=== PATIENT | female | born 1980 | race African-American/Black ===

== ENCOUNTER 2019-02-12 18:46 | Emergency (ER) | payer BC ==
[~2019-02-12 18:46] MED LIST: GLUCOPHAGE500 MG PO; HYZAAR 100-25 T1 TAB PO; IBUPROFEN600 MG PO; KLOR-CON 1010 MEQ PO; PERCOCET 5-3251 TAB PO
[2019-02-12 18:49] VITALS: BP 214/140; BMI 32.8
[2019-02-12] MEDS ORDERED: VALTREX1000 MG PO (18:51)
[2019-02-12] MEDS ORDERED: KEFLEX250 MG PO (18:52)
[2019-02-12 20:06] LABS: BASOPHILS 0.1 % (0-2); EOSINOPHILS 1.7 % (0-7); HEMATOCRIT 42.9 % (36.0-48.0); HEMOGLOBIN 15.3 g/dL (12-16); IMMATURE GRANULOCYTES 0.1 % (0-5); LYMPHOCYTES 24.5 % (15-50); MCH 30.2 pg (26.0-34.0); MCHC 35.7 g/dL (31.0-37.0); MCV 84.8 fL (80.0-100.0); MEAN PLATELET VOLUME 9.4 fL (7.4-10.4); MONOCYTES 3.2 % (2-11); NEUTROPHILS 70.4 % (40-80); PLATELET COUNT 295 10x3/uL (130-400); RBC 5.06 10x6/uL (4.00-5.40); RDW 12.7 % (11.5-14.5); WBC 8.7 10x3/uL (4.8-10.8)
[2019-02-12 20:23] LABS: ALBUMIN 4.1 g/dL (3.4-5.0); ALKALINE PHOSPHATASE 73 U/L (46-116); ALT (SGPT) 35 U/L (10-68); BILIRUBIN - TOTAL 0.26 mg/dL (0.2-1.3); CALC OSMOLALITY 279 mosm/kg (275-300); CALCIUM 9.1 mg/dL (8.5-10.1); CARBON DIOXIDE 29.5 mmol/L (21.0-32.0); CHLORIDE - SERUM 100 mmol/L (98-107); CREATININE - SERUM 0.6 mg/dL (0.6-1.3); POTASSIUM - SERUM 3.4 mmol/L (3.5-5.1); SODIUM 136 mmol/L (136-145); UREA NITROGEN 10 mg/dL (7-18); eGFR NON AFRICAN AMERICAN > 90 mL/min (90-120)
[2019-02-12 20:25] LABS: GLUCOSE 256 mg/dL (74-106)
[2019-02-12] MEDS ORDERED: HYDROCHLOROTH12.5 M1 PO (20:51)
[2019-02-12] MEDS ORDERED: NORVASC5 MG PO (20:51)
[2019-02-12] MEDS ORDERED: CATAPRES0.1 MG PO (20:57)
[2019-02-12] MEDS ORDERED: GLUCOPHAGE500 MG PO (20:59)
== END 2019-02-12 21:00 | disposition home or self-care (01) ==
LOC: D.ER 18:46
PROVIDERS: Family Medicine
DX: R51 Headache (principal); E11.9 Type 2 diabetes mellitus without complications; R00.0 Tachycardia, unspecified; I10 Essential (primary) hypertension; Z91.14 Patient's other noncompliance with medication regimen